=== PATIENT | female | born 1960 | race Caucasian/White ===

== ENCOUNTER 2016-10-01 23:34 | Emergency (ER) | payer OTHER ==
[~2016-10-01 23:34] MED LIST: AUGMENTIN PO; VICODIN 5/1 TAB 5/50 PO
[2016-10-02] MEDS ORDERED: NO MEDICATIONS (01:05)
== END 2016-10-02 00:15 | disposition left against medical advice (07) ==
LOC: CED 23:34
DX: Z53.21 Procedure and treatment not carried out due to patient leaving prior to being seen by health care provider (principal)

== ENCOUNTER 2016-10-02 00:35 | Emergency (ER) | payer SELFPAY ==
--- NOTE | ~2016-10-02 | CR157 ---
[facility]. [facility] A Service of [facility] & [facility] RADIOLOGY TEXT RESULTS PATIENT: JEN BALDERAS LOCATION: SED : 56 UNIT #: [id number] AGE: [address]: Franklyn Kitchen MD SEX: F ORDER DR: [id number] [place] [id number] E MR#: [id number] Acc #: [id number] NAME: JEN BALDERAS : 1960 SEX: F STUDY DATE/TIME: 10/02/2016 2:04 UNIT: SED ROOM: STUDY DESCRIPTION: CR Humerus Min 2 View Rt Attending Physician: Franklyn Kitchen M.D. Ordering Physician: Franklyn Kitchen M.D. Primary Care Physician: Nicolle Villeda M.D. MEDICAL IMAGING REPORT This report is preliminary unless electronic signature is present. EXAM Right humerus INDICATION Right humerus pain after fall today. FINDINGS This AP view of the right humerus shows an anterior inferior dislocation at the shoulder. There is no fracture visible. Dictated by... Stephen Marin M.D. THIS IS AN ELECTRONICALLY VERIFIED REPORT Stephen Marin M.D. at 10/02/2016 1:52 PM RANI/armond TD: 10/02/2016 11:36 JOB #: [id number] MEDICAL IMAGING REPORT Page 1 of 1
--- NOTE | ~2016-10-02 | CR230 ---
[facility]. [facility] A Service of [facility] & [facility] RADIOLOGY TEXT RESULTS PATIENT: JEN BALDERAS LOCATION: SED : 56 UNIT #: [id number] AGE: [address]: Franklyn Kitchen MD SEX: F ORDER DR: [id number] [place] [id number] E MR#: [id number] Acc #: [id number] NAME: JEN BALDERAS : 1960 SEX: F STUDY DATE/TIME: 10/02/2016 2:04 UNIT: SED ROOM: STUDY DESCRIPTION: CR Shoulder Min 2 View Rt Attending Physician: Franklyn Kitchen M.D. Ordering Physician: Franklyn Kitchen M.D. Primary Care Physician: Nicolle Villeda M.D. MEDICAL IMAGING REPORT This report is preliminary unless electronic signature is present. EXAM Right shoulder INDICATION Right shoulder pain after falling today. FINDINGS An AP view of the shoulder shows an anterior inferior dislocation without visible fracture. IMPRESSION There is an anterior inferior dislocation. No fracture is visible. Dictated by... Stephen Marin M.D. THIS IS AN ELECTRONICALLY VERIFIED REPORT Stephen Marin M.D. at 10/02/2016 1:52 PM RANI/armond TD: 10/02/2016 11:34 JOB #: [id number] MEDICAL IMAGING REPORT Page 1 of 1
--- NOTE | ~2016-10-02 | CR227 ---
[facility]. [facility] A Service of [facility] & [facility] RADIOLOGY TEXT RESULTS PATIENT: JEN BALDERAS LOCATION: SED : 56 UNIT #: [id number] AGE: [address]: Franklyn Kitchen MD SEX: F ORDER DR: [id number] [place] [id number] E MR#: [id number] Acc #: [id number] NAME: JEN BALDERAS : 1960 SEX: F STUDY DATE/TIME: 10/02/2016 3:02 UNIT: SED ROOM: STUDY DESCRIPTION: CR Shoulder 1 View Rt Attending Physician: Franklyn Kitchen M.D. Ordering Physician: Franklyn Kitchen M.D. Primary Care Physician: Nicolle Villeda M.D. MEDICAL IMAGING REPORT This report is preliminary unless electronic signature is present. EXAM Right shoulder INDICATION Dislocated shoulder which has been reduced. FINDINGS This AP view of the shoulder shows that the anterior inferior dislocation has been reduced. There is no visible fracture. Dictated by... Stephen Marin M.D. THIS IS AN ELECTRONICALLY VERIFIED REPORT Stephen Marin M.D. at 10/02/2016 1:53 PM RANI/armond TD: 10/02/2016 12:04 JOB #: [id number] MEDICAL IMAGING REPORT Page 1 of 1
[2016-10-02] MEDS ORDERED: NO MEDICATIONS (01:05)
== END 2016-10-02 04:50 | disposition home or self-care (01) ==
LOC: SED 00:35
DX: S43.004A Unspecified dislocation of right shoulder joint, initial encounter (principal); W19.XXXA Unspecified fall, initial encounter; Y92.89 Other specified places as the place of occurrence of the external cause
CPT/HCPCS: 23650; 73020; 73030; 73060; 96374; 96375; 99152; 99283; J2250; J2270; J2405